=== PATIENT | male | born 1970 | race Caucasian/White ===

== ENCOUNTER 2017-10-28 02:05 | Emergency (ER) | payer BC ==
[2017-10-28] MEDS ORDERED: Levofloxacin TAB* 250 MG PO ONE (02:38)
[2017-10-28] MEDS ORDERED: guaiFENesin ER TAB 600 MG PO ONE (02:38)
[2017-10-28] MEDS ORDERED: Albuterol/Ipratropium NEB.SOL* Albuterol 2.5 MG/Ipratropium 0.5 MG 3 ML INH ONE (02:38)
[2017-10-28] MEDS ORDERED: predniSONE TAB* 20 MG PO ONE (02:39)
[2017-10-28] MEDS ORDERED: Famotidine TAB* 20 MG PO ONE (02:50)
[2017-10-28 02:52] VITALS: BP 174/111
--- NOTE | 2017-10-28 06:23 | ED ---
Alison Nguyen Julia, scribed for Dilip Valencia MD on 10/28/17 at 0238 . Respiratory - HPI Summary HPI Summary: This patient is a 47 year old M presenting to [facility] with a chief complaint of SOB upon waking at 01:00 today. Patient reports nasal and chest congestion, and productive cough with brown sputum. Patient has a history of sleep apena. - History of Current Complaint Chief Complaint: EDUpperRespComplaint Stated Complaint: DIFFICULTY BREATHING Time Seen by Provider: 10/28/17 02:24 Hx Obtained From: Patient Onset/Duration: Lasting Hours Timing: Constant Pain Intensity: 0 Character: Cough (Productive), Dyspnea at Rest Sputum Color: Rust, Brown Associated Signs and Symptoms: SOB, Nasal Congestion, Sinus Discomfort Related History: Similar Episode/Dx as - sleep apnea - Allergy/Home Medications Allergies/Adverse Reactions: Allergies Allergy/AdvReac Type Severity Reaction Status Date / Time Adhesive Tape Allergy Rash Verified 10/28/17 02:11 amoxicillin [From Augmentin] Allergy Rash Verified 10/28/17 02:11 cephalexin [From Keflex] Allergy Rash Verified 10/28/17 02:11 clavulanic acid Allergy Rash Verified 10/28/17 02:11 [From Augmentin] codeine Allergy Rash Verified 10/28/17 02:11 PMH/Surg Hx/FS Hx/Imm Hx Endocrine/Hematology History: Denies: Hx Diabetes Cardiovascular History: Reports: Hx Hypertension Denies: Hx Pacemaker/ICD Respiratory History: Reports: Hx Sleep Apnea, Other Respiratory Problems/ Disorders - CYST History: Denies: Hx Renal Disease Sensory History: Denies: Hx Hearing Aid Neurological History: Reports: Other Neuro Impairments/Disorders - PAIN CLINIC PT Psychiatric History: Denies: Hx Panic Disorder - Surgical History Surgery Procedure, Year, and Place: RHINOPLASTY 1998, LEFT RING FINGER- SCREWS 1997, APPENDECTOMY 2000 Infectious Disease History: No Infectious Disease History: Denies: Traveled Outside the [place] in Last 30 Days - Social History Alcohol Use: None Substance Use Type: Reports: None Substance Use Comment - Amount & Last Used: Oxycontin and percocet Smoking Status (MU): Former Smoker Type: Cigarettes Have You Smoked in the Last Year: No Review of Systems Positive: Other - nasal congestion and pain Respiratory: Other - chest congestion Positive: Shortness Of Breath, Cough - productive All Other Systems Reviewed And Are Negative: Yes Physical Exam - Summary Physical Exam Summary: Appearance: Well appearing, no pain distress Skin: warm, dry, reflects adequate perfusion Head/face: normal Eyes: EOMI, ANA ENT: nasal mucosa edema, frontal tenderness to percussion, throat is clear Neck: supple, non-tender Respiratory: , breath sounds present, mild wheezes Cardiovascular: RRR, pulses symmetrical Abdomen: non-tender, soft Bowel: present Musculoskeletal: normal, strength/ROM intact Neuro: normal, sensory motor intact, A&Ox3 Triage Information Reviewed: Yes Vital Signs On Initial Exam: Initial Vitals Temp Pulse Resp BP Pulse Ox 97.1 F 85 18 160/106 95 10/28/17 02:06 10/28/17 02:06 10/28/17 02:06 10/28/17 02:06 10/28/17 02:06 Vital Signs Reviewed: Yes Diagnostics - Vital Signs Vital Signs Temp Pulse Resp BP Pulse Ox 10/28/17 02:06 97.1 F 85 18 160/106 95 - Laboratory Lab Statement: Any lab studies that have been ordered have been reviewed, and results considered in the medical decision making process. Disposition - Course Course Of Treatment: sinus pain/blockage and diff using his CPAP. Has sinus rinse at home. Encouraged to do this. Tx symptomatically. Start Levaquin given he is PCN allergic. F/U PMD. - Differential Dx - Cardiopulmonary Differential Diagnoses - Cardiopulmonary: Bronchitis, Sinusitis, Other - URI/ viral - Diagnoses Provider Diagnoses: Acute sinusitis, Dyspnea Discharge - Discharge Plan Condition: Good Disposition: HOME Prescriptions: Albuterol HFA INHALER* [Ventolin HFA Inhaler*] 2 puff INH Q4H PRN #1 mdi PRN Reason: Shortness Of Breath guaiFENesin [Guaifenesin ER] 600 mg PO BID #20 tab.er.12h Levofloxacin TAB* [Levaquin TAB*] 750 mg PO DAILY #6 tab predniSONE TAB* [Deltasone TAB*] 50 mg PO DAILY #3 tab Patient Education Materials: Sinusitis (ED) Referrals: Luis Hawkins MD [Primary Care Provider] - Additional Instructions: Call your doctor to follow up first thing in the morning. Use sinus rinses as discussed. Return with high fever, vomiting, trouble breathing, worse or other concerns. The documentation as recorded by the Alison [email or web address] accurately reflects the service I personally performed and the decisions made by me, Dilip Valencia MD.
== END 2017-10-28 03:11 | disposition home or self-care (01) ==
LOC: ED 02:05
DX: J01.90 Acute sinusitis, unspecified (principal); R06.00 Dyspnea, unspecified; Z87.891 Personal history of nicotine dependence; Z88.3 Allergy status to other anti-infective agents; Z88.5 Allergy status to narcotic agent
CPT/HCPCS: 94640; 99282; A9270-GY; J7512

== ENCOUNTER 2019-04-12 15:16 | Emergency (ER) | payer BC ==
[2019-04-12 15:28] VITALS: BP 130/77
--- NOTE | 2019-04-12 16:45 | UC ---
Lower Extremity/Ankle HPI - HPI Summary HPI Summary: 3 days ago he was trying to separate some fighting dogs and he accidentally kicked a wall with his right foot. He has had pain and ecchymosis since then. - History of Current Complaint Chief Complaint: UCLowerExtremity Stated Complaint: FOOT INJURY Time Seen by Provider: 04/12/19 16:13 Pain Intensity: 6 - Allergies/Home Medications Allergies/Adverse Reactions: Allergies Allergy/AdvReac Type Severity Reaction Status Date / Time Adhesive Tape Allergy Rash Verified 04/12/19 15:28 amoxicillin [From Augmentin] Allergy Rash Verified 04/12/19 15:28 cephalexin [From Keflex] Allergy Rash Verified 04/12/19 15:28 clavulanic acid Allergy Rash Verified 04/12/19 15:28 [From Augmentin] codeine Allergy Rash Verified 04/12/19 15:28 levofloxacin [From Levaquin] Allergy Leg Cramps Verified 04/12/19 15:28 PMH/Surg Hx/FS Hx/Imm Hx Previously Healthy: No - his chronic back pain and takes oxycodone on a daily basis. - Surgical History Surgical History: Yes Surgery Procedure, Year, and Place: RHINOPLASTY 1998, LEFT RING FINGER- SCREWS 1997, APPENDECTOMY 2000 - Social History Alcohol Use: None Substance Use Type: None Substance Use Comment - Amount & Last Used: Oxycontin and percocet Smoking Status (MU): Former Smoker Type: Cigarettes Have You Smoked in the Last Year: No Review of Systems All Other Systems Reviewed And Are Negative: Yes Constitutional: Positive: Negative Skin: Positive: Bruising Motor: Positive: Decreased ROM Neurovascular: Positive: Negative Musculoskeletal: Positive: Decreased ROM Neurological: Positive: Negative Physical Exam - Summary Physical Exam Summary: He is nontoxic in appearance with stable vital signs. Triage Information Reviewed: Yes Appearance: Pain Distress Vital Signs: Initial Vital Signs Temp 97.1 F 04/12/19 15:25 Pulse 87 04/12/19 15:25 Resp 16 04/12/19 15:25 BP 130/77 04/12/19 15:25 Pulse Ox 98 04/12/19 15:25 Vital Signs Reviewed: Yes Musculoskeletal Exam: Other - He is ecchymotic at the MPJs of his second third and fourth toes on his right foot dorsally. He has full range of motion and good capillary refill distally. Neurological Exam: Normal Diagnostics - Radiology right foot Radiology Interpretation Completed By: Radiologist Summary of Radiographic Findings: No acute process Lower Extremity Course/Dx - Course Course Of Treatment: He has a significant contusion and sprain of his right foot. He feels better and a postop shoe with an Reji wrap and wants to work. He works at [employer] but says he can be relieved from the necessity of doing patient restraints etc. He was placed in a postop shoe with an Reji wrap and got significant comfort from that. He wants to go back to work and assures me that he can do light duty. I recommended ibuprofen and follow-up with his PCP - Differential Dx/Diagnosis Provider Diagnosis: Contusion of foot, right Discharge - Sign-Out/Discharge Documenting (check all that apply): Patient Departure All imaging exams completed and their final reports reviewed: Yes - Discharge Plan Condition: Stable Disposition: HOME Patient Education Materials: Foot Contusion (ED) Forms: *Work Release Referrals: Luis Hawkins MD [Primary Care Provider] - Additional Instructions: Okay to walk and do light duty with the foot in the restraint. If he is suffering significant pain with ambulation nonstop and follow-up with medical care for reevaluation. - Billing Disposition and Condition Condition: STABLE Disposition: Home
== END 2019-04-12 16:55 | disposition home or self-care (01) ==
LOC: UCEAST 15:16
DX: S90.31XA Contusion of right foot, initial encounter (principal); W22.01XA Walked into wall, initial encounter; Y92.9 Unspecified place or not applicable; Z87.891 Personal history of nicotine dependence; Z88.5 Allergy status to narcotic agent
CPT/HCPCS: 99213; G0463